=== PATIENT | male | born 1955 | race African-American/Black ===

== ENCOUNTER → 2020-03-04 16:19 | Outpatient (CLI) | payer MEDICARE, BC, SELFPAY ==
[2020-03-04 17:38] LABS: Prostate Specific Ag, Diagnost < 0.064 ng/ml (0.0-4.0)
== END ==
PROVIDERS: Visit Provider Urology
DX: C61 Malignant neoplasm of prostate (principal)
CPT/HCPCS: 36415; 84153

== ENCOUNTER → 2021-03-10 15:39 | Outpatient (CLI) | payer MEDICARE, BC, SELFPAY ==
[2021-03-10 18:01] LABS: Prostate Specific Ag, Diagnost < 0.064 ng/ml (0.0-4.0)
== END ==
PROVIDERS: Visit Provider Urology
DX: C61 Malignant neoplasm of prostate (principal)
CPT/HCPCS: 36415; 84153